=== PATIENT | male | born 1990 | race Caucasian/White ===

== ENCOUNTER 2020-10-02 03:10 | Emergency (ER) | payer OTHER ==
[~2020-10-02] VITALS: Ht 188 cm; Wt 99.8 kg
[2020-10-02 04:21] VITALS: BP 154/65
--- NOTE | 2020-10-02 09:51 | EKG ---
[place] [address] ELECTROCARDIOGRAM REPORT Name: ROSE GARCIA [id number] Admission: 10/02/20 Attend Phys: Discharge: 10/02/20 Date of : 89 Date of Service: 10/02/20314 Report #: [id number] THIS REPORT FOR: //name// [facility] ED Test Date: 2020-10-02 Test Time: 03:15:34 Pat Name: ROSE GARCIA Department: Room: Gender: Electrical Control Assembler: : 1990 Requested By: Rosalee Hansen Order Number: [id number] Alyssa MD: Flaco Pond Measurements Intervals [place] Rate: 111 P: 70 OR: 146 QRS: -48 QRSD: 97 T: 71 QT: 324 QTc: 441 Interpretive Statements Sinus tachycardia Biatrial enlargement LAD, consider left anterior fascicular block No previous ECG available for comparison Electronically Signed On 10-02-2020 9:50:51 CDT by Flaco Pond [email or web address] <ELECTRONICALLY SIGNED> By: Flaco Pond MD, [facility] 10/02/20 0950 0315 0315 Flaco Pond MD, [facility] /EPI
== END 2020-10-02 04:21 | disposition home or self-care (01) ==
LOC: M.ERS 03:10
DX: F41.9 Anxiety disorder, unspecified (principal); J38.3 Other diseases of vocal cords; J45.909 Unspecified asthma, uncomplicated